=== PATIENT | male | born 1940 | race Caucasian/White ===

== ENCOUNTER 2018-01-01 12:49 | Outpatient (CLI) | payer MEDICARE, BC ==
--- NOTE | 2018-01-01 14:28 | RAD ---
TWO VIEWS OF THE CHEST: COMPARISON: 06/30/13. HISTORY: Dyspnea. FINDINGS: Two views of the chest show a normal-size cardiomediastinal silhouette. There is no evidence of cons olidation, mass, or pleural effusion. Degenerative changes are seen in the spine. IMPRESSION: No evidence of acute cardiopulmonary disease. POS: [facility]
== END 2018-01-01 12:50 | disposition home or self-care (01) ==
LOC: RAD 12:49
PROVIDERS: ATTEND Internal Medicine Critical Care Medicine
DX: R06.00 Dyspnea, unspecified (principal)
CPT/HCPCS: 71046

== ENCOUNTER 2018-02-13 12:17 | Outpatient (CLI) | payer MEDICARE, BC ==
[2018-02-13 13:04] LABS: CO2 Tension 33.5 mmHg (35.0-45.0); pH, Arterial 7.43 (7.35-7.45)
[2018-02-13 13:05] LABS: Actual Bicarbonate (HCO3a) 21.8 mEq/L (22-28); Base Excess (BEa) -1.7 mEq/L (-2.0 to +3.0); Hemoglobin (Hb) 13.3 g/dL (14.0-18.0); O2 Tension (PaO2) 58.4 mmHg (> 70.0)
[2018-02-13 13:06] LABS: Analyzer IN Cardio OR; Calcium, Ionized 1.1 mmol/L (1.12-1.30); Puncture Site RR
[2018-02-13 13:07] LABS: ALV-art Gradient 49.455 (0-20)
== END 2018-02-13 12:18 | disposition home or self-care (01) ==
LOC: CP 12:17
PROVIDERS: ATTEND Internal Medicine
DX: J44.9 Chronic obstructive pulmonary disease, unspecified (principal)
CPT/HCPCS: 82805; 94060; 94727; 94729

== ENCOUNTER 2022-11-27 11:11 | Outpatient (CLI) | payer MEDICARE, BC ==
[2022-11-27 12:07] LABS: Mean Corpuscular HGB CONC 32.7 g/dL (32.0-36.0); Mean Corpuscular Hemoglobin 34.3 pg (27.0-33.0); Mean Corpuscular Volume 104.7 fl (81.2-95.1); Platelet Count 202 10x3/uL (150-450); RBC Distribution Width 12.2 % (11.5-14.5); Red Blood Cell (RBC) Count 3.79 10x6/uL (4.32-5.72); White Blood Cell (WBC) Count 8.5 10x3/uL (3.5-10.5)
[2022-11-27 12:19] LABS: Prothrombin Time 10.9 sec (9.5-12.1)
== END 2022-11-27 11:12 | disposition home or self-care (01) ==
LOC: LABBT 11:11
PROVIDERS: ATTEND Neurological Surgery
DX: Z01.812 Encounter for preprocedural laboratory examination (principal); G56.01 Carpal tunnel syndrome, right upper limb
CPT/HCPCS: 85027; 85610; 85730

== ENCOUNTER 2022-11-28 06:47 | Day surgery (SDC) | payer MEDICARE, BC ==
[2022-11-27 12:47] VITALS: BMI 23.6
[2022-11-28] MEDS ORDERED: Lidocaine 1% (PF) 30 ML VIAL ONE (08:26)
[2022-11-28] MEDS ORDERED: Neomycin-Polymyxin 1 ML AMP ONE (08:26)
[2022-11-28] MEDS ORDERED: CEFAZOLIN 2 GM VIAL ONE (09:24)
[2022-11-28] MEDS ORDERED: Sodium Chloride 0.9% 100 ML ONE (09:24)
[2022-11-28] MEDS ORDERED: fentaNYL PF 100 MCG/2 ML SYRINGE ONE (09:25)
[2022-11-28] MEDS ORDERED: ePHEDrine Sulfate 50 MG/10 ML VIAL ONE (09:36)
[2022-11-28] MEDS ORDERED: Lidocaine 1% PF 5 ML VIAL ONE (09:36)
[2022-11-28] MEDS ORDERED: Dexamethasone 20 MG/5 ML VIAL ONE (09:36)
[2022-11-28] MEDS ORDERED: Phenylephrine 10 MG/ML VIAL ONE (09:36)
[2022-11-28] MEDS ORDERED: Ondansetron PF 4 MG/2 ML Vial ONE (09:36)
[2022-11-28] MEDS ORDERED: PROPOFOL 200 MG/20 ML VIAL ONE (09:36)
== END 2022-11-28 12:30 | disposition home or self-care (01) ==
LOC: SDC 06:47
PROVIDERS: ATTEND Neurological Surgery
PROC: 01N50ZZ Release Median Nerve, Open Approach (ICD-10-PCS; principal; 2022-11-28)
DX: G56.01 Carpal tunnel syndrome, right upper limb (principal); M47.22 Other spondylosis with radiculopathy, cervical region; M48.02 Spinal stenosis, cervical region; G89.29 Other chronic pain; K21.9 Gastro-esophageal reflux disease without esophagitis; Z91.018 Allergy to other foods; Z79.899 Other long term (current) drug therapy; Z87.891 Personal history of nicotine dependence
CPT/HCPCS: J1100; J2001; J2370; J2405; J2704; J3490

== ENCOUNTER 2024-09-08 14:29 | Outpatient (CLI) | payer MEDICARE | END 2024-09-08 14:30 | disposition home or self-care (01) | LOC: RAD 14:29 | PROVIDERS: ATTEND Internal Medicine Critical Care Medicine | DX: R06.00 Dyspnea, unspecified (principal); J98.4 Other disorders of lung; J43.9 Emphysema, unspecified; I51.89 Other ill-defined heart diseases; M47.814 Spondylosis without myelopathy or radiculopathy, thoracic region | CPT/HCPCS: 71046 ==